=== PATIENT | male | born 1945 | race Caucasian/White ===

== ENCOUNTER 2017-01-29 18:03 | Emergency (ER) | payer BC, MEDICARE ==
[~2017-01-29] VITALS: Ht 170.2 cm; Wt 67.1 kg
[~2017-01-29 18:03] MED LIST: ASPI81TA2 PO; CHOL100062 PO; OMEG1CAP PO; ROSU5TAB PO; UBID100C13 PO; VALS160T2 PO
--- NOTE | 2017-01-29 18:10 | NUR ---
PRESENTS SELF TO ED DUE TO PRESSURE LIKE CHEST PAIN X 20 MINUTES, NON RADIATING,. 03/08. PATIENT IS AAO3, APPEARS IN NO APPARENT DISTRESS, RESPIRATION EVEN AND UNALBORED. SKIN IS WARM TO TOUCH AND NON DIAPHORETIC. PATIENT AFEBRILE. GOWNED AND PLACED ON TELE MONITOR.
[2017-01-29] MEDS ORDERED: IV SET PRIMARY 1 EA INFUS.SET MC ONE (18:13)
[2017-01-29] MEDS ORDERED: IV NS 0.9% 1,000 ML ONE (18:13)
--- NOTE | 2017-01-29 18:15 | NUR ---
EKG TCH AT FOR EKG
--- NOTE | 2017-01-29 18:22 | NUR ---
MD BOO AT
[2017-01-29 18:33] LABS: BASOPHILS # (AUTO) 0.1 /CMM (0.0-0.2); BASOPHILS % (AUTO) 1.2 % (0.0-2.0); EOSINOPHILS # (AUTO) 0.2 /CMM (0.0-0.7); EOSINOPHILS % (AUTO) 2.2 % (0.0-6.0); HEMATOCRIT 49 % (39-51); HEMOGLOBIN 16.5 g/dL (13.5-17.5); LYMPHOCYTES # (AUTO) 3.4 /CMM (0.8-4.8); LYMPHOCYTES % (AUTO) 34.1 % (20.0-44.0); MEAN CORPUSCULAR HEMOGLOBIN 31 PG (26.0-33.0); MEAN CORPUSCULAR HGB CONC 34 g/dl (31.0-36.0); MEAN CORPUSCULAR VOLUME 91 fL (80-96); MONOCYTES # (AUTO) 0.9 /CMM (0.1-1.30); NEUTROPHILS # (AUTO) 5.4 /CMM (1.8-8.9); NEUTROPHILS % (AUTO) 53.5 % (43.0-81.0); PLATELET COUNT (AUTO) 235 /CMM (150-450); RDW COEFFICIENT OF VARIATION 11.9 (11.5-15.0); RED BLOOD CELL COUNT(AUTO) 5.36 MIL/uL (4.5-6.0)
[2017-01-29 18:49] LABS: TROPONIN I < 0.017 ng/mL (0.00-0.056)
[2017-01-29 18:55] LABS: D-DIMER 0.2 mg/L(FEU (0.17-0.50); INR 0.96 (0.87-1.13); PROTHROMBIN TIME 10.3 SECS (9.5-12.7)
[2017-01-29 18:56] LABS: CALCIUM, SERUM 8.5 mg/dL (8.5-10.1); CARBON DIOXIDE 25 mmol/L (21-32); CHLORIDE 106 mmol/L (98-107); CREATININE 1.3 mg/dL (0.6-1.3); GLUCOSE 102 mg/dL (74-106); SODIUM SERUM 139 mmol/L (136-145); UREA NITROGEN, BLOOD 16 mg/dL (7-18)
--- NOTE | 2017-01-29 18:59 | NUR ---
patient awake, vss.
--- NOTE | 2017-01-29 19:00 | NUR ---
report given to ar eastman
--- NOTE | 2017-01-29 19:06 | NUR ---
RECEIVED REPORT FROM RN FOR [facility]LEXIS. PT DENIES CP/CHEST HEAVINESS FROM EARLIER. FAMILY AT BEDSIDE. PT APPEARS COMFORTBALE.
--- NOTE | 2017-01-29 20:18 | NUR ---
DR. BOO AT BEDSIDE SPEAKING TO PT AND FAMILY REGARDING RESULTS.
--- NOTE | 2017-01-29 20:33 | NUR ---
IV removed. Catheter intact and site benign. Pressure and 4x4 applied to site. No bleeding noted. Patient discharged to home in stable condition. Written and verbal after care instructions given. Patient verbalizes understanding of instruction.ambulatory with a steady gait
[2017-01-29 20:34] VITALS: BP 123/85
== END 2017-01-29 20:34 | disposition home or self-care (01) ==
LOC: ER 18:05
DX: R00.2 Palpitations (principal); R42 Dizziness and giddiness; R07.9 Chest pain, unspecified; R06.02 Shortness of breath; R94.31 Abnormal electrocardiogram [ECG] [EKG]; I10 Essential (primary) hypertension; Z79.82 Long term (current) use of aspirin; E78.5 Hyperlipidemia, unspecified
CPT/HCPCS: 36415; 71010; 80048; 84443; 84484; 85025; 85378; 85730; 93005 ×2; 99285; A4606; J7030; Z7610

== ENCOUNTER 2024-06-14 16:01 | Emergency (ER) | payer MEDICARE, BC ==
[~2024-06-14] VITALS: Ht 170.2 cm; Wt 63.5 kg
[~2024-06-14 16:01] MED LIST changes: +ASPI-1169 PO; -ASPI81TA2 PO
[2024-06-14 16:30] VITALS: BP 137/78; TEMP 98.2
[2024-06-14] MEDS ORDERED: TDAP [DIPH/PERTUSSIS/TET] 0.5 ML VIAL IM ONE (17:05)
[2024-06-14] MEDS: TDAP [DIPH/PERTUSSIS/TET] 0.5 ML VIAL IM ONE (17:09)
[2024-06-14 17:19] VITALS: O2SAT 98
== END 2024-06-14 17:19 | disposition home or self-care (01) ==
LOC: ER 16:02
DX: S61.213A Laceration without foreign body of left middle finger without damage to nail, initial encounter (principal); I10 Essential (primary) hypertension; E78.5 Hyperlipidemia, unspecified; W26.0XXA Contact with knife, initial encounter; Y93.89 Activity, other specified; Y92.89 Other specified places as the place of occurrence of the external cause; Y99.8 Other external cause status
CPT/HCPCS: 12001; 90471; 90715; 99283; A6403